=== PATIENT | female | born 1965 | race Caucasian/White ===

== ENCOUNTER → 2023-09-04 | Outpatient (CLI) | payer BC | LOC: PET 13:15 | PROVIDERS: ATTEND Internal Medicine | DX: C90.00 Multiple myeloma not having achieved remission (principal) | CPT/HCPCS: 78815; A9552 ==

== ENCOUNTER 2023-12-24 13:51 | Outpatient (CLI) | payer BC | END 2023-12-24 13:52 | disposition home or self-care (01) | LOC: BICMAMMO 13:51 | PROVIDERS: ATTEND Internal Medicine | DX: Z12.31 Encounter for screening mammogram for malignant neoplasm of breast (principal) | CPT/HCPCS: 77063; 77067 ==